=== PATIENT | male | born 1995 | race African-American/Black ===

== ENCOUNTER 2016-11-17 16:08 | Emergency (ER) | payer MEDICAID ==
[~2016-11-17] VITALS: Ht 177.8 cm; Wt 100.0 kg
[2016-11-17] MEDS ORDERED: MORPHINE SULFATE 4 MG/ML CPJ (NOT FOR IM USE) IV STA (16:36)
[2016-11-17] MEDS ORDERED: ONDANSETRON HCL 4MG/2ML VIAL IV STA (16:36)
[2016-11-17] MEDS ORDERED: MORPHINE SULFATE 4 MG/ML CPJ (NOT FOR IM USE) IV ONE ×2 (18:00→18:45)
[2016-11-17] MEDS ORDERED: CEFAZOLIN 1000MG PREMIX 50 ML IV ONE (18:00)
[2016-11-17] MEDS ORDERED: TETANUS, DIPHTHERIA, PERTUSSIS VAC/PF 0.5ML (>7YR OLD) IM ONE (18:00)
[2016-11-17 18:21] LABS: BASOPHILS % 0.3 % (0.0-2.0); EOSINOPHILS % 0.4 % (0.0-5.0); HEMATOCRIT. 37.8 % (42.0-52.0); HEMOGLOBIN. 12.8 g/dL (14.0-18.0); MEAN CORPUSCULAR HEMOGLOBIN 31.7 pg (28.0-32.0); MEAN CORPUSCULAR VOLUME 93.5 fL (80.0-94.0); MEAN PLATELET VOLUME 8.3 fl (7.4-10.4); MONOCYTES % 9.2 % (2.0-8.0); NEUTROPHILS % 74.1 % (40.0-76.0); PLATELET 330 x1000/uL (130-400); RED BLOOD CELL COUNT 4.04 mill/uL (4.7-6.1); RED CELL DISTRIBUTION WIDTH 12.8 % (11.6-14.6)
[2016-11-17 18:25] LABS: CHLORIDE 103 mEq/L (98-107)
[2016-11-17 18:27] LABS: PROTHROMBIN TIME 10.9 sec
[2016-11-17 18:32] LABS: CARBON DIOXIDE 29 mEq/L (21-32)
[2016-11-17 20:00] VITALS: BP 134/82
== END 2016-11-17 21:59 | disposition short-term general hospital (02) ==
LOC: ER 16:26
PROC: 2W3FX1Z Immobilization of Left Hand using Splint (ICD-10-PCS; principal; 2016-11-17)
DX: S52.502B Unspecified fracture of the lower end of left radius, initial encounter for open fracture type I or II (principal); X93.XXXA Assault by handgun discharge, initial encounter; Y93.89 Activity, other specified; Y92.488 Other paved roadways as the place of occurrence of the external cause
CPT/HCPCS: 29125; 36415; 73090; 73130; 80053; 85025; 85610; 90471; 90715; 96365; 96375; 96376; 99285; J0690; J2270; J2405; J7040; Z7610

== ENCOUNTER 2024-06-09 09:49 | Emergency (ER) | payer MEDICAID, OTHER ==
[~2024-06-09] VITALS: Ht 170.2 cm; Wt 117.0 kg
[2024-06-09 09:51] VITALS: O2SAT 98
[2024-06-09 10:16] VITALS: BP 170/100; PULSE 68; RESP 16; TEMP 36.8; O2SAT 98
[2024-06-09] MEDS: BACITRACIN ZINC OINT UDPKT TOP ONE (10:42)
[2024-06-09] MEDS ORDERED: ACET-2708 MT (11:39)
[2024-06-09] MEDS: TETANUS, DIPHTHERIA, PERTUSSIS VAC/PF 0.5ML (>10YR OLD) IM ONE (11:57)
== END 2024-06-09 11:59 | disposition home or self-care (01) ==
LOC: ER 09:49
DX: S01.81XA Laceration without foreign body of other part of head, initial encounter (principal); W18.30XA Fall on same level, unspecified, initial encounter; Y93.89 Activity, other specified; Y92.89 Other specified places as the place of occurrence of the external cause; Y99.8 Other external cause status
CPT/HCPCS: 90715; 12015; 90471; 99283; Z7610